=== PATIENT | female | born 1955 | race Caucasian/White ===

== ENCOUNTER 2017-09-26 14:07 | Inpatient (IN) | payer OTHER ==
[2017-09-26] MEDS: morphine 4 MG/ML VIAL IV (17:08)
[2017-09-26] MEDS: SOD CHLORIDE 0.9% 1,000 ML IV ×2 (17:08→18:39)
[2017-09-26] MEDS: ONDANSETRON 4 MG INJ IV ×2 (17:08→18:39)
[2017-09-26 17:09] LABS: ADD MAN DIFF? NO
[2017-09-26 17:14] LABS: BASOPHILS % 0.2 % (0.0-2.0); EOSINOPHILS # 0.1 10^3/ul (0.0-0.5); EOSINOPHILS % 1.6 % (0.0-7.0); HEMOGLOBIN 13.3 g/dl (12.0-16.0); LYMPHOCYTES # 1.6 10^3/ul (0.8-2.9); LYMPHOCYTES % 17.6 % (15.0-51.0); MEAN CORPUSCULAR HEMOGLOBIN 31.9 pg (29.0-33.0); MEAN CORPUSCULAR VOLUME 91.1 fl (82.0-101.0); MEAN PLATELET VOLUME 9.9 fl (7.4-10.4); MONOCYTE # 0.8 10^3/ul (0.3-0.9); NEUTROPHIL # 6.4 10^3/ul (1.6-7.5); NEUTROPHILS % 71.4 % (39.0-77.0); PLATELET COUNT 287 10^3/UL (140-415); RED BLOOD COUNT 4.17 10^6/ul (4.20-5.40); RED CELL DISTRIBUTION WIDTH 11.9 % (11.5-14.5)
[2017-09-26 17:30] LABS: INR 0.96; PROTIME 12.9 Sec (11.9-14.9)
[2017-09-26 17:31] LABS: PARTIAL THROMBOPLASTIN TIME 31.8 Sec (25.0-35.0)
[2017-09-26 17:33] LABS: ALANINE AMINOTRANSFERASE 20 IU/L (13-69); ALBUMIN 4.3 g/dl (3.3-4.9); ALKALINE PHOSPHATASE 106 IU/L (42-121); AMYLASE 73 U/L (11-123); ANION GAP 19 (8-16); ASPARTATE AMINO TRANSFERASE 21 IU/L (15-46); BILIRUBIN,INDIRECT 0.4 mg/dl (0-1.1); BILIRUBIN,TOTAL 0.4 mg/dl (0.2-1.3); BLOOD UREA NITROGEN 20 mg/dl (7-20); CALCIUM 9.6 mg/dl (8.4-10.2); CARBON DIOXIDE 26 mmol/L (21-31); CHLORIDE 99 mmol/L (97-110); CREATININE 1.63 mg/dl (0.44-1.00); GLUCOSE 104 mg/dl (70-220); LIPASE 49 U/L (23-300); POTASSIUM 4.3 mmol/L (3.5-5.1); SODIUM 140 mmol/L (135-144); TOTAL PROTEIN 8.6 g/dl (6.1-8.1)
[2017-09-26 17:38] LABS: ADD UMIC YES; UR ASCORBIC ACID NEGATIVE (NEGATIVE); UR BACTERIA FEW /HPF (NONE SEEN); UR BILIRUBIN (Dip) NEGATIVE (NEGATIVE); UR BLOOD (Dip) NEGATIVE (NEGATIVE); UR CLARITY CLOUDY (CLEAR); UR COLOR AMBER (YELLOW); UR GLUCOSE (Dip) NEGATIVE (NEGATIVE); UR HYALINE CAST FEW /HPF (NONE SEEN); UR KETONES (Dip) NEGATIVE (NEGATIVE); UR LEUKOCYTE ESTERASE (Dip) TRACE Leu/ul (NEGATIVE); UR MUCUS MODERATE /HPF (NONE SEEN); UR NITRITE (Dip) NEGATIVE (NEGATIVE); UR RBC 2 /HPF (0-5); UR SPECIFIC GRAVITY (Dip) 1.018 (1.003-1.030); UR SQUAMOUS EPITHELIAL CELL MANY /HPF (FEW); UR TOTAL PROTEIN (Dip) 1+ mg/dl (NEGATIVE); UR UROBILINOGEN (Dip) 1+ mg/dL (NEGATIVE); UR WBC 12 /HPF (0-5)
[2017-09-26 17:47] LABS: TROPONIN-I < 0.012 ng/ml (0.00-0.12)
[2017-09-26] MEDS: IODIXANOL LOCM 100 ML BTL (18:18)
[2017-09-26] MEDS: SOD CHLORIDE 0.9% 100 ML (18:18)
[2017-09-26] MEDS: HYDROmorphONE 0.5 MG/0.5 ML SYG IV (18:39)
[2017-09-26] MEDS: PIPER-TAZO 3.375 GM IV (PMX) 100 ML IVPB (19:19)
[2017-09-26] MEDS ORDERED: ONDANSETRON 4 MG INJ IV (20:30)
[2017-09-26] MEDS ORDERED: HYDROmorphONE 0.5 MG/0.5 ML SYG IV (21:00)
[2017-09-27] MEDS ORDERED: PIPER-TAZO 3.375 GM IV (PMX) 100 ML IVPB
[2017-09-27] MEDS: DEXTROSE 5%-0.45% NACL 1,000 ML IV ×3 (01:57→18:44)
[2017-09-27] MEDS: PIPER-TAZO 3.375 GM IV (PMX) 100 ML IVPB ×4 (01:58→18:43)
[2017-09-27] MEDS: HYDROmorphONE 0.5 MG/0.5 ML SYG IV ×5 (02:45→23:12)
[2017-09-27 06:40] LABS: ADD MAN DIFF? NO
[2017-09-27 06:46] LABS: BASOPHILS % 0.4 % (0.0-2.0); EOSINOPHILS # 0.4 10^3/ul (0.0-0.5); EOSINOPHILS % 4.8 % (0.0-7.0); HEMATOCRIT 30.1 % (37.0-47.0); HEMOGLOBIN 10.2 g/dl (12.0-16.0); LYMPHOCYTES # 2.1 10^3/ul (0.8-2.9); LYMPHOCYTES % 28.9 % (15.0-51.0); MEAN CORPUSCULAR HEMOGLOBIN 31.6 pg (29.0-33.0); MEAN CORPUSCULAR HGB CONC 33.9 g/dl (32.0-37.0); MEAN CORPUSCULAR VOLUME 93.2 fl (82.0-101.0); MEAN PLATELET VOLUME 10.2 fl (7.4-10.4); MONOCYTE # 0.7 10^3/ul (0.3-0.9); MONOCYTES % 9.4 % (0.0-11.0); NEUTROPHIL # 4.1 10^3/ul (1.6-7.5); NEUTROPHILS % 56.4 % (39.0-77.0); PLATELET COUNT 232 10^3/UL (140-415); RED BLOOD COUNT 3.23 10^6/ul (4.20-5.40); RED CELL DISTRIBUTION WIDTH 11.8 % (11.5-14.5)
[2017-09-27 06:46] LABS: WHITE BLOOD COUNT 7.3 10^3/ul (4.8-10.8)
[2017-09-27] MEDS: PANTOPRAZOLE 40 MG INJ IV (06:54)
[2017-09-27 07:07] LABS: ANION GAP 12 (8-16); BLOOD UREA NITROGEN 18 mg/dl (7-20); CALCIUM 8.5 mg/dl (8.4-10.2); CARBON DIOXIDE 27 mmol/L (21-31); CHLORIDE 106 mmol/L (97-110); CREATININE 1.27 mg/dl (0.44-1.00); GLUCOSE 91 mg/dl (70-220); SODIUM 140 mmol/L (135-144)
[2017-09-27] MEDS ORDERED: LORAZEPAM 2 MG INJ IV (16:30)
[2017-09-28] MEDS: PIPER-TAZO 3.375 GM IV (PMX) 100 ML IVPB ×3 (00:13→12:39)
[2017-09-28] MEDS: DEXTROSE 5%-0.45% NACL 1,000 ML IV ×2 (05:06→18:12)
[2017-09-28] MEDS: HYDROmorphONE 0.5 MG/0.5 ML SYG IV ×3 (05:18→18:11)
[2017-09-28] MEDS: PANTOPRAZOLE 40 MG INJ IV (05:18)
[2017-09-28 06:17] LABS: ADD MAN DIFF? NO
[2017-09-28 06:20] LABS: BASOPHILS % 0.5 % (0.0-2.0); EOSINOPHILS # 0.4 10^3/ul (0.0-0.5); EOSINOPHILS % 6.1 % (0.0-7.0); HEMATOCRIT 28.7 % (37.0-47.0); HEMOGLOBIN 9.9 g/dl (12.0-16.0); LYMPHOCYTES # 1.7 10^3/ul (0.8-2.9); LYMPHOCYTES % 28.7 % (15.0-51.0); MEAN CORPUSCULAR HEMOGLOBIN 31.6 pg (29.0-33.0); MEAN CORPUSCULAR HGB CONC 34.5 g/dl (32.0-37.0); MEAN CORPUSCULAR VOLUME 91.7 fl (82.0-101.0); MEAN PLATELET VOLUME 10.5 fl (7.4-10.4); MONOCYTE # 0.6 10^3/ul (0.3-0.9); MONOCYTES % 9.6 % (0.0-11.0); NEUTROPHIL # 3.3 10^3/ul (1.6-7.5); NEUTROPHILS % 54.9 % (39.0-77.0); PLATELET COUNT 224 10^3/UL (140-415); RED BLOOD COUNT 3.13 10^6/ul (4.20-5.40); RED CELL DISTRIBUTION WIDTH 11.9 % (11.5-14.5)
[2017-09-28 06:20] LABS: WHITE BLOOD COUNT 5.9 10^3/ul (4.8-10.8)
[2017-09-28 06:49] LABS: ALANINE AMINOTRANSFERASE 20 IU/L (13-69); ALBUMIN 3.1 g/dl (3.3-4.9); ALBUMIN/GLOBULIN RATIO 0.96; ALKALINE PHOSPHATASE 74 IU/L (42-121); ANION GAP 14 (8-16); ASPARTATE AMINO TRANSFERASE 18 IU/L (15-46); BILIRUBIN,INDIRECT 0.2 mg/dl (0-1.1); BILIRUBIN,TOTAL 0.2 mg/dl (0.2-1.3); BLOOD UREA NITROGEN 13 mg/dl (7-20); CALCIUM 8.5 mg/dl (8.4-10.2); CARBON DIOXIDE 25 mmol/L (21-31); CHLORIDE 104 mmol/L (97-110); CREATININE 1.21 mg/dl (0.44-1.00); GLUCOSE 89 mg/dl (70-220); SODIUM 139 mmol/L (135-144); TOTAL PROTEIN 6.3 g/dl (6.1-8.1)
[2017-09-28 07:00] LABS: PHOSPHORUS 4.4 mg/dl (2.5-4.9)
[2017-09-28 07:00] LABS: MAGNESIUM 1.7 mg/dl (1.7-2.5)
[2017-09-28] MEDS: LEVOFLOXACIN 500MG/D5W (PMX) 100 ML IVPB (20:08)
[2017-09-29] MEDS: HYDROmorphONE 0.5 MG/0.5 ML SYG IV ×4 (01:58→19:36)
[2017-09-29] MEDS: PANTOPRAZOLE 40 MG INJ IV (05:28)
[2017-09-29] MEDS: DEXTROSE 5%-0.45% NACL 1,000 ML IV (08:54)
[2017-09-29] MEDS: DIPHENHYDRAMINE 50 MG INJ IV (20:21)
[2017-09-30] MEDS: HYDROmorphONE 0.5 MG/0.5 ML SYG IV ×3 (00:10→20:23)
[2017-09-30] MEDS: DEXTROSE 5%-0.45% NACL 1,000 ML IV ×3 (02:26→18:00)
[2017-09-30] MEDS: PANTOPRAZOLE 40 MG INJ IV (05:17)
[2017-09-30 07:09] LABS: ALANINE AMINOTRANSFERASE 24 IU/L (13-69); ALBUMIN 3.4 g/dl (3.3-4.9); ALBUMIN/GLOBULIN RATIO 1.09; ALKALINE PHOSPHATASE 71 IU/L (42-121); ANION GAP 11 (8-16); ASPARTATE AMINO TRANSFERASE 19 IU/L (15-46); BLOOD UREA NITROGEN 5 mg/dl (7-20); CALCIUM 8.9 mg/dl (8.4-10.2); CARBON DIOXIDE 29 mmol/L (21-31); CHLORIDE 104 mmol/L (97-110); CREATININE 0.94 mg/dl (0.44-1.00); GLUCOSE 94 mg/dl (70-220); POTASSIUM 4.4 mmol/L (3.5-5.1); SODIUM 140 mmol/L (135-144); TOTAL PROTEIN 6.5 g/dl (6.1-8.1)
[2017-09-30] MEDS: DIPHENHYDRAMINE 50 MG INJ IV (11:32)
[2017-09-30] MEDS ORDERED: IOHEXOL 300MG/ML 30 ML BTL (15:01)
[2017-09-30] MEDS ORDERED: CEFAZOLIN 1 GM INJ (15:05)
[2017-09-30] MEDS ORDERED: PROPOFOL 20 ML (15:05)
[2017-09-30] MEDS ORDERED: FENTAnyl 50 MCG/ML VIAL (15:05)
[2017-09-30] MEDS ORDERED: MIDAZOLAM 1 MG/ML 2 ML INJ (15:05)
[2017-09-30] MEDS ORDERED: ROCURONIUM 50 MG INJ (15:05)
[2017-09-30] MEDS: INDOMETHACIN 50 MG SUPP PR ×2 (15:30)
[2017-09-30] MEDS: INDOMETHACIN PO (15:35)
[2017-09-30] MEDS ORDERED: DEXAMETHASONE 4 MG/ML 1 ML INJ (15:36)
[2017-09-30] MEDS ORDERED: ONDANSETRON 4 MG INJ (15:36)
[2017-09-30] MEDS ORDERED: METOCLOPRAMIDE 10 MG INJ (15:36)
[2017-09-30] MEDS ORDERED: DIPHENHYDRAMINE 50 MG INJ (15:36)
[2017-09-30] MEDS ORDERED: GLUCAGON 1 MG INJ (15:39)
[2017-09-30] MEDS ORDERED: SUGAMMADEX SODIUM 200 MG/2 ML VIAL IV (16:44)
[2017-09-30] MEDS ORDERED: hydrALAzine 20 MG INJ IV (17:00)
[2017-09-30] MEDS ORDERED: HYDROmorphONE (0.2 MG/ML) 10ML SYG IV ×3 (17:00)
[2017-09-30] MEDS ORDERED: FENTAnyl 50 MCG/ML VIAL IV ×3 (17:00)
[2017-09-30] MEDS ORDERED: ONDANSETRON 4 MG INJ IV (17:00)
[2017-09-30] MEDS ORDERED: MEPERIDINE 25 MG INJ IV (17:00)
[2017-09-30] MEDS ORDERED: LABETALOL HCL 20MG INJ IV (17:00)
[2017-09-30] MEDS ORDERED: EPHEDrine SULFATE 50 MG/5 ML SYG IV (17:00)
[2017-09-30] MEDS ORDERED: DIPHENHYDRAMINE 50 MG INJ IV (17:00)
[2017-09-30] MEDS ORDERED: METOCLOPRAMIDE 10 MG INJ IV (17:00)
[2017-09-30] MEDS: LEVOFLOXACIN 500MG/D5W (PMX) 100 ML IVPB (20:23)
[2017-10-01] MEDS: HYDROmorphONE 0.5 MG/0.5 ML SYG IV ×3 (01:43→20:29)
[2017-10-01] MEDS: PANTOPRAZOLE 40 MG INJ IV (05:50)
[2017-10-01 06:29] LABS: ADD MAN DIFF? NO
[2017-10-01 06:43] LABS: ABNORMAL IP MESSAGE 1; HEMATOCRIT 29.9 % (37.0-47.0); HEMOGLOBIN 10.3 g/dl (12.0-16.0); LYMPHOCYTES # 0.4 10^3/ul (0.8-2.9); LYMPHOCYTES % 11.2 % (15.0-51.0); MEAN CORPUSCULAR HEMOGLOBIN 30.7 pg (29.0-33.0); MEAN CORPUSCULAR HGB CONC 34.4 g/dl (32.0-37.0); MEAN CORPUSCULAR VOLUME 89.3 fl (82.0-101.0); MEAN PLATELET VOLUME 10.4 fl (7.4-10.4); MONOCYTE # 0.2 10^3/ul (0.3-0.9); MONOCYTES % 4.9 % (0.0-11.0); NEUTROPHIL # 3.2 10^3/ul (1.6-7.5); NEUTROPHILS % 83.6 % (39.0-77.0); PLATELET COUNT 226 10^3/UL (140-415); RED BLOOD COUNT 3.35 10^6/ul (4.20-5.40); RED CELL DISTRIBUTION WIDTH 11.6 % (11.5-14.5)
[2017-10-01 06:43] LABS: WHITE BLOOD COUNT 3.8 10^3/ul (4.8-10.8)
[2017-10-01 06:51] LABS: POSITIVE DIFF @See below
[2017-10-01 07:00] LABS: ALANINE AMINOTRANSFERASE 67 IU/L (13-69); ALBUMIN 3.6 g/dl (3.3-4.9); ALBUMIN/GLOBULIN RATIO 1.12; ALKALINE PHOSPHATASE 117 IU/L (42-121); ANION GAP 13 (8-16); ASPARTATE AMINO TRANSFERASE 80 IU/L (15-46); BLOOD UREA NITROGEN 7 mg/dl (7-20); CARBON DIOXIDE 26 mmol/L (21-31); CHLORIDE 104 mmol/L (97-110); CREATININE 0.87 mg/dl (0.44-1.00); GLUCOSE 175 mg/dl (70-220); MAGNESIUM 1.5 mg/dl (1.7-2.5); SODIUM 139 mmol/L (135-144); TOTAL PROTEIN 6.8 g/dl (6.1-8.1)
[2017-10-01 07:00] LABS: PHOSPHORUS 3.1 mg/dl (2.5-4.9)
[2017-10-01] MEDS: DEXTROSE 5%-0.45% NACL 1,000 ML IV (11:09)
[2017-10-01] MEDS: LISINOPRIL 20 MG TAB PO ×2 (17:00→20:29)
[2017-10-01] MEDS: VITAMIN E 200 UNITS CAP PO (17:30)
[2017-10-01] MEDS ORDERED: clonAZEPAM 0.5 MG TAB PO (17:30)
[2017-10-01] MEDS ORDERED: LISINOPRIL 20 MG TAB PO (17:30)
[2017-10-01] MEDS: [UNRECOGNIZED DRUG - REMARK] XX (17:47)
[2017-10-01] MEDS: clonAZEPAM 0.5 MG TAB PO (20:25)
[2017-10-02] MEDS: [UNRECOGNIZED DRUG - REMARK] XX (02:00)
[2017-10-02] MEDS: DEXTROSE 5%-0.45% NACL 1,000 ML IV ×2 (05:28→09:12)
[2017-10-02] MEDS: PANTOPRAZOLE 40 MG INJ IV (05:28)
[2017-10-02 08:54] LABS: ADD MAN DIFF? NO
[2017-10-02] MEDS ORDERED: VITAMIN E PO (09:00)
[2017-10-02 09:03] LABS: WHITE BLOOD COUNT 5.1 10^3/ul (4.8-10.8)
[2017-10-02 09:03] LABS: BASOPHILS % 0.4 % (0.0-2.0); EOSINOPHILS # 0.3 10^3/ul (0.0-0.5); EOSINOPHILS % 6.3 % (0.0-7.0); HEMATOCRIT 28.1 % (37.0-47.0); HEMOGLOBIN 9.6 g/dl (12.0-16.0); LYMPHOCYTES % 39.4 % (15.0-51.0); MEAN CORPUSCULAR HEMOGLOBIN 31.6 pg (29.0-33.0); MEAN CORPUSCULAR HGB CONC 34.2 g/dl (32.0-37.0); MEAN CORPUSCULAR VOLUME 92.4 fl (82.0-101.0); MEAN PLATELET VOLUME 10.5 fl (7.4-10.4); MONOCYTE # 0.5 10^3/ul (0.3-0.9); MONOCYTES % 10.4 % (0.0-11.0); NEUTROPHIL # 2.2 10^3/ul (1.6-7.5); NEUTROPHILS % 43.3 % (39.0-77.0); PLATELET COUNT 217 10^3/UL (140-415); RED BLOOD COUNT 3.04 10^6/ul (4.20-5.40); RED CELL DISTRIBUTION WIDTH 11.9 % (11.5-14.5)
[2017-10-02] MEDS: carBAMAZepine (XR) 100 MG TABSR PO (09:14)
[2017-10-02] MEDS: ARIPIPRAZOLE 10 MG TAB PO (09:15)
[2017-10-02] MEDS: LISINOPRIL 20 MG TAB PO (09:16)
[2017-10-02 09:27] LABS: ALANINE AMINOTRANSFERASE 43 IU/L (13-69); ALBUMIN 3.1 g/dl (3.3-4.9); ALKALINE PHOSPHATASE 86 IU/L (42-121); ANION GAP 13 (8-16); ASPARTATE AMINO TRANSFERASE 38 IU/L (15-46); BLOOD UREA NITROGEN 5 mg/dl (7-20); CALCIUM 8.5 mg/dl (8.4-10.2); CARBON DIOXIDE 25 mmol/L (21-31); CHLORIDE 106 mmol/L (97-110); CREATININE 0.98 mg/dl (0.44-1.00); GLUCOSE 90 mg/dl (70-220); POTASSIUM 3.5 mmol/L (3.5-5.1); SODIUM 140 mmol/L (135-144); TOTAL PROTEIN 5.9 g/dl (6.1-8.1)
[2017-10-02] MEDS: HYDROmorphONE 0.5 MG/0.5 ML SYG IV (09:55)
[2017-10-02] MEDS: VITAMIN E 200 UNITS CAP PO (17:00)
== END 2017-10-02 18:05 | disposition home or self-care (01) | DRG 445 ==
LOC: E/R 14:07 → PP2 20:26
PROC: 0FJB8ZZ Inspection of Hepatobiliary Duct, Via Natural or Artificial Opening Endoscopic (ICD-10-PCS; principal; 2017-09-30 15:00)
PROC: CF1C1ZZ Planar Nuclear Medicine Imaging of Hepatobiliary System, All using Technetium 99m (Tc-99m) (ICD-10-PCS; 2017-09-30 15:00)
DX: K80.43 Calculus of bile duct with acute cholecystitis with obstruction (principal); N17.9 Acute kidney failure, unspecified; N39.0 Urinary tract infection, site not specified; R78.81 Bacteremia; Z68.35 Body mass index [BMI] 35.0-35.9, adult; D64.9 Anemia, unspecified; I10 Essential (primary) hypertension; F31.9 Bipolar disorder, unspecified; M81.0 Age-related osteoporosis without current pathological fracture; K83.8 Other specified diseases of biliary tract; K56.41 Fecal impaction
CPT/HCPCS: 71045; 74177; 74181; 76705; 78226; 80048; 80053; 81001; 82150; 83690; 83735; 84100; 84484; 85025; 85610; 85730; 87040; 87086; 93005; 96374; 96375; 96376; 99285-25

== ENCOUNTER 2017-11-25 17:55 | Inpatient (IN) | payer OTHER ==
[2017-11-25 19:13] LABS: ADD MAN DIFF? NO
[2017-11-25] MEDS: morphine 4 MG/ML VIAL IV (19:14)
[2017-11-25] MEDS: ONDANSETRON 4 MG INJ IV (19:14)
[2017-11-25] MEDS: clonAZEPAM 0.5 MG TAB PO (19:14)
[2017-11-25 19:17] LABS: BASOPHILS % 0.5 % (0.0-2.0); EOSINOPHILS # 0.1 10^3/ul (0.0-0.5); EOSINOPHILS % 1.3 % (0.0-7.0); HEMATOCRIT 33.5 % (37.0-47.0); HEMOGLOBIN 11.5 g/dl (12.0-16.0); LYMPHOCYTES # 2.2 10^3/ul (0.8-2.9); LYMPHOCYTES % 36.5 % (15.0-51.0); MEAN CORPUSCULAR HEMOGLOBIN 31.3 pg (29.0-33.0); MEAN CORPUSCULAR HGB CONC 34.3 g/dl (32.0-37.0); MEAN PLATELET VOLUME 9.5 fl (7.4-10.4); MONOCYTE # 0.5 10^3/ul (0.3-0.9); MONOCYTES % 8.5 % (0.0-11.0); NEUTROPHIL # 3.3 10^3/ul (1.6-7.5); PLATELET COUNT 222 10^3/UL (140-415); RED BLOOD COUNT 3.68 10^6/ul (4.20-5.40); RED CELL DISTRIBUTION WIDTH 12.3 % (11.5-14.5)
[2017-11-25 19:17] LABS: WHITE BLOOD COUNT 6.1 10^3/ul (4.8-10.8)
[2017-11-25] MEDS ORDERED: ONDANSETRON 4 MG INJ IV (19:30)
[2017-11-25] MEDS ORDERED: ACETAMINOPHEN 325 MG TAB PO (19:30)
[2017-11-25 19:34] LABS: ALANINE AMINOTRANSFERASE 18 IU/L (13-69); ALBUMIN 4.2 g/dl (3.3-4.9); ALBUMIN/GLOBULIN RATIO 1.23; ALKALINE PHOSPHATASE 86 IU/L (42-121); ANION GAP 13 (8-16); ASPARTATE AMINO TRANSFERASE 28 IU/L (15-46); BILIRUBIN,INDIRECT 0.4 mg/dl (0-1.1); BILIRUBIN,TOTAL 0.4 mg/dl (0.2-1.3); BLOOD UREA NITROGEN 11 mg/dl (7-20); CALCIUM 8.6 mg/dl (8.4-10.2); CARBON DIOXIDE 24 mmol/L (21-31); CHLORIDE 94 mmol/L (97-110); CREATININE 0.89 mg/dl (0.44-1.00); GLUCOSE 91 mg/dl (70-220); LIPASE 49 U/L (23-300); SODIUM 127 mmol/L (135-144); TOTAL PROTEIN 7.6 g/dl (6.1-8.1)
[2017-11-25 19:37] LABS: PROTIME 12.2 Sec (11.9-14.9)
[2017-11-25 19:38] LABS: PARTIAL THROMBOPLASTIN TIME 30.4 Sec (25.0-35.0)
[2017-11-25 19:48] LABS: TROPONIN-I < 0.012 ng/ml (0.000-0.120)
[2017-11-25 23:27] LABS: ADD UMIC NO; UR ASCORBIC ACID NEGATIVE (NEGATIVE); UR BILIRUBIN (Dip) NEGATIVE (NEGATIVE); UR BLOOD (Dip) NEGATIVE (NEGATIVE); UR CLARITY CLEAR (CLEAR); UR COLOR STRAW (YELLOW); UR GLUCOSE (Dip) NEGATIVE (NEGATIVE); UR KETONES (Dip) NEGATIVE (NEGATIVE); UR LEUKOCYTE ESTERASE (Dip) NEGATIVE Leu/ul (NEGATIVE); UR NITRITE (Dip) NEGATIVE (NEGATIVE); UR SPECIFIC GRAVITY (Dip) 1.008 (1.003-1.030); UR TOTAL PROTEIN (Dip) NEGATIVE (NEGATIVE); UR UROBILINOGEN (Dip) NEGATIVE (NEGATIVE)
[2017-11-26] MEDS: DEXTROSE 5%-0.9% NACL 1,000 ML IV ×2 (02:30→22:00)
[2017-11-26] MEDS: PANTOPRAZOLE 40 MG INJ IV (05:07)
[2017-11-26 05:13] LABS: ADD MAN DIFF? NO
[2017-11-26 05:15] LABS: BASOPHILS % 0.8 % (0.0-2.0); EOSINOPHILS # 0.2 10^3/ul (0.0-0.5); EOSINOPHILS % 3.6 % (0.0-7.0); HEMATOCRIT 29.3 % (37.0-47.0); HEMOGLOBIN 9.9 g/dl (12.0-16.0); LYMPHOCYTES # 2.6 10^3/ul (0.8-2.9); LYMPHOCYTES % 49.2 % (15.0-51.0); MEAN CORPUSCULAR HEMOGLOBIN 31.1 pg (29.0-33.0); MEAN CORPUSCULAR HGB CONC 33.8 g/dl (32.0-37.0); MEAN CORPUSCULAR VOLUME 92.1 fl (82.0-101.0); MEAN PLATELET VOLUME 10.1 fl (7.4-10.4); MONOCYTE # 0.5 10^3/ul (0.3-0.9); MONOCYTES % 9.2 % (0.0-11.0); NEUTROPHILS % 36.8 % (39.0-77.0); PLATELET COUNT 188 10^3/UL (140-415); RED BLOOD COUNT 3.18 10^6/ul (4.20-5.40); RED CELL DISTRIBUTION WIDTH 12.4 % (11.5-14.5)
[2017-11-26 05:15] LABS: WHITE BLOOD COUNT 5.3 10^3/ul (4.8-10.8)
[2017-11-26 05:32] LABS: ALANINE AMINOTRANSFERASE 24 IU/L (13-69); ALBUMIN 3.2 g/dl (3.3-4.9); ALKALINE PHOSPHATASE 72 IU/L (42-121); ANION GAP 8 (8-16); ASPARTATE AMINO TRANSFERASE 24 IU/L (15-46); BILIRUBIN,INDIRECT 0.3 mg/dl (0-1.1); BILIRUBIN,TOTAL 0.3 mg/dl (0.2-1.3); BLOOD UREA NITROGEN 10 mg/dl (7-20); CALCIUM 8.1 mg/dl (8.4-10.2); CARBON DIOXIDE 26 mmol/L (21-31); CHLORIDE 98 mmol/L (97-110); GLUCOSE 87 mg/dl (70-220); POTASSIUM 4.2 mmol/L (3.5-5.1); SODIUM 128 mmol/L (135-144); TOTAL PROTEIN 6.1 g/dl (6.1-8.1)
[2017-11-26] MEDS: morphine 2 MG INJ IV ×3 (07:37→18:58)
[2017-11-26] MEDS: CEFTRIAXONE 1 GM/50 ML (PMX) 50 ML IVPB (08:24)
[2017-11-26] MEDS ORDERED: ARIPIPRAZOLE 5 MG TAB PO (11:30)
[2017-11-26] MEDS ORDERED: clonAZEPAM 0.5 MG TAB PO (11:30)
[2017-11-26] MEDS: ARIPIPRAZOLE 10 MG TAB PO (13:02)
[2017-11-26] MEDS: LISINOPRIL 20 MG TAB PO (13:13)
[2017-11-26] MEDS: metroNIDAZOLE 500 MG/NS (PMX) 100 ML IVPB ×2 (15:09→21:45)
[2017-11-26 18:55] LABS: SODIUM,URINE RANDOM 32 mmol/L (30-90)
[2017-11-26 19:44] LABS: OSMOLALITY,URINE 114 mOsm/kg (250-1200)
[2017-11-26] MEDS: clonAZEPAM 0.5 MG TAB PO (20:45)
[2017-11-26] MEDS: carBAMAZepine (XR) 100 MG TABSR PO (21:44)
[2017-11-27] MEDS: DEXTROSE 5%-0.9% NACL 1,000 ML IV ×2 (02:00→18:33)
[2017-11-27] MEDS: morphine 2 MG INJ IV ×4 (03:40→18:34)
[2017-11-27 05:25] LABS: ADD MAN DIFF? NO
[2017-11-27] MEDS: metroNIDAZOLE 500 MG/NS (PMX) 100 ML IVPB ×3 (05:28→22:13)
[2017-11-27] MEDS: PANTOPRAZOLE 40 MG INJ IV (05:28)
[2017-11-27 05:31] LABS: BASOPHILS % 0.8 % (0.0-2.0); EOSINOPHILS # 0.1 10^3/ul (0.0-0.5); EOSINOPHILS % 3.2 % (0.0-7.0); HEMATOCRIT 32.5 % (37.0-47.0); HEMOGLOBIN 10.7 g/dl (12.0-16.0); LYMPHOCYTES # 1.4 10^3/ul (0.8-2.9); LYMPHOCYTES % 37.3 % (15.0-51.0); MEAN CORPUSCULAR HEMOGLOBIN 30.9 pg (29.0-33.0); MEAN CORPUSCULAR HGB CONC 32.9 g/dl (32.0-37.0); MEAN CORPUSCULAR VOLUME 93.9 fl (82.0-101.0); MEAN PLATELET VOLUME 9.8 fl (7.4-10.4); MONOCYTE # 0.4 10^3/ul (0.3-0.9); MONOCYTES % 11.5 % (0.0-11.0); NEUTROPHIL # 1.8 10^3/ul (1.6-7.5); NEUTROPHILS % 47.2 % (39.0-77.0); PLATELET COUNT 186 10^3/UL (140-415); RED BLOOD COUNT 3.46 10^6/ul (4.20-5.40); RED CELL DISTRIBUTION WIDTH 12.7 % (11.5-14.5)
[2017-11-27 05:31] LABS: WHITE BLOOD COUNT 3.8 10^3/ul (4.8-10.8)
[2017-11-27 06:30] LABS: MAGNESIUM 1.9 mg/dl (1.7-2.5)
[2017-11-27 06:30] LABS: PHOSPHORUS 4.9 mg/dl (2.5-4.9)
[2017-11-27 06:33] LABS: ALANINE AMINOTRANSFERASE 24 IU/L (13-69); ALBUMIN 3.3 g/dl (3.3-4.9); ALKALINE PHOSPHATASE 74 IU/L (42-121); ANION GAP 9 (8-16); ASPARTATE AMINO TRANSFERASE 24 IU/L (15-46); BILIRUBIN,INDIRECT 0.1 mg/dl (0-1.1); BILIRUBIN,TOTAL 0.1 mg/dl (0.2-1.3); BLOOD UREA NITROGEN 9 mg/dl (7-20); CALCIUM 8.6 mg/dl (8.4-10.2); CARBON DIOXIDE 28 mmol/L (21-31); CHLORIDE 107 mmol/L (97-110); CREATININE 0.84 mg/dl (0.44-1.00); GLUCOSE 90 mg/dl (70-220); POTASSIUM 4.2 mmol/L (3.5-5.1); SODIUM 140 mmol/L (135-144); TOTAL PROTEIN 6.3 g/dl (6.1-8.1)
[2017-11-27 06:35] LABS: SODIUM,URINE RANDOM 38 mmol/L (30-90)
[2017-11-27] MEDS: CEFTRIAXONE 1 GM/50 ML (PMX) 50 ML IVPB (09:03)
[2017-11-27] MEDS: LISINOPRIL 20 MG TAB PO (09:04)
[2017-11-27] MEDS: ARIPIPRAZOLE 10 MG TAB PO (09:04)
[2017-11-27] MEDS: carBAMAZepine (XR) 100 MG TABSR PO ×2 (09:06→20:47)
[2017-11-27 09:32] LABS: OSMOLALITY,URINE 172 mOsm/kg (250-1200)
[2017-11-27] MEDS: clonAZEPAM 0.5 MG TAB PO (22:11)
[2017-11-28] MEDS: morphine 2 MG INJ IV ×4 (01:07→20:16)
[2017-11-28] MEDS: DEXTROSE 5%-0.9% NACL 1,000 ML IV ×2 (03:38→14:00)
[2017-11-28] MEDS: metroNIDAZOLE 500 MG/NS (PMX) 100 ML IVPB ×3 (05:18→21:38)
[2017-11-28] MEDS: PANTOPRAZOLE 40 MG INJ IV (05:18)
[2017-11-28 05:47] LABS: ADD MAN DIFF? NO
[2017-11-28 05:51] LABS: BASOPHILS % 0.3 % (0.0-2.0); EOSINOPHILS # 0.1 10^3/ul (0.0-0.5); EOSINOPHILS % 2.2 % (0.0-7.0); HEMATOCRIT 32.7 % (37.0-47.0); HEMOGLOBIN 10.6 g/dl (12.0-16.0); LYMPHOCYTES # 1.5 10^3/ul (0.8-2.9); LYMPHOCYTES % 42.7 % (15.0-51.0); MEAN CORPUSCULAR HGB CONC 32.4 g/dl (32.0-37.0); MEAN CORPUSCULAR VOLUME 95.6 fl (82.0-101.0); MEAN PLATELET VOLUME 9.8 fl (7.4-10.4); MONOCYTE # 0.4 10^3/ul (0.3-0.9); MONOCYTES % 12.4 % (0.0-11.0); NEUTROPHIL # 1.5 10^3/ul (1.6-7.5); NEUTROPHILS % 42.4 % (39.0-77.0); PLATELET COUNT 191 10^3/UL (140-415); RED BLOOD COUNT 3.42 10^6/ul (4.20-5.40); RED CELL DISTRIBUTION WIDTH 12.5 % (11.5-14.5)
[2017-11-28 05:51] LABS: WHITE BLOOD COUNT 3.6 10^3/ul (4.8-10.8)
[2017-11-28 06:22] LABS: ALANINE AMINOTRANSFERASE 25 IU/L (13-69); ALBUMIN 3.3 g/dl (3.3-4.9); ALBUMIN/GLOBULIN RATIO 1.17; ALKALINE PHOSPHATASE 70 IU/L (42-121); ANION GAP 8 (8-16); ASPARTATE AMINO TRANSFERASE 23 IU/L (15-46); BILIRUBIN,INDIRECT 0.1 mg/dl (0-1.1); BILIRUBIN,TOTAL 0.1 mg/dl (0.2-1.3); BLOOD UREA NITROGEN 10 mg/dl (7-20); CALCIUM 8.3 mg/dl (8.4-10.2); CARBON DIOXIDE 27 mmol/L (21-31); CHLORIDE 108 mmol/L (97-110); CREATININE 0.75 mg/dl (0.44-1.00); GLUCOSE 89 mg/dl (70-220); POTASSIUM 4.2 mmol/L (3.5-5.1); SODIUM 139 mmol/L (135-144); TOTAL PROTEIN 6.1 g/dl (6.1-8.1)
[2017-11-28 06:26] LABS: MAGNESIUM 1.8 mg/dl (1.7-2.5)
[2017-11-28] MEDS: CEFTRIAXONE 1 GM/50 ML (PMX) 50 ML IVPB (08:36)
[2017-11-28] MEDS: clonAZEPAM 0.5 MG TAB PO ×2 (08:37→21:38)
[2017-11-28] MEDS: carBAMAZepine (XR) 100 MG TABSR PO ×2 (08:38→22:14)
[2017-11-28] MEDS: ARIPIPRAZOLE 10 MG TAB PO (08:39)
[2017-11-28] MEDS: ACETAMINOPHEN 325 MG TAB PO ×2 (08:40→23:25)
[2017-11-28] MEDS: LISINOPRIL 20 MG TAB PO (08:45)
[2017-11-29] MEDS: morphine 2 MG INJ IV ×4 (00:45→19:49)
[2017-11-29] MEDS: DEXTROSE 5%-0.9% NACL 1,000 ML IV (02:49)
[2017-11-29 05:24] LABS: WHITE BLOOD COUNT 3.3 10^3/ul (4.8-10.8)
[2017-11-29 05:24] LABS: ABNORMAL IP MESSAGE 1; HEMATOCRIT 29.9 % (37.0-47.0); HEMOGLOBIN 9.8 g/dl (12.0-16.0); MEAN CORPUSCULAR HEMOGLOBIN 30.8 pg (29.0-33.0); MEAN CORPUSCULAR HGB CONC 32.8 g/dl (32.0-37.0); MEAN PLATELET VOLUME 9.9 fl (7.4-10.4); PLATELET COUNT 184 10^3/UL (140-415); RED BLOOD COUNT 3.18 10^6/ul (4.20-5.40); RED CELL DISTRIBUTION WIDTH 12.6 % (11.5-14.5)
[2017-11-29 05:33] LABS: ADD MAN DIFF? YES; POSITIVE DIFF @See below
[2017-11-29] MEDS: metroNIDAZOLE 500 MG/NS (PMX) 100 ML IVPB ×3 (05:47→21:38)
[2017-11-29] MEDS: PANTOPRAZOLE 40 MG INJ IV (05:47)
[2017-11-29 06:47] LABS: BASOPHILS % (M) 1 % (0-2); EOSINOPHILS % (M) 5 % (0-7); LYMPHOCYTES #M 2.1 10^3/ul (0.8-2.9); LYMPHOCYTES % (M) 66 % (15-51); MONOCYTE #M 0.4 10^3/ul (0.3-0.9); MONOCYTES % (M) 13 % (0-11); OVALOCYTES 1+ (0-0); PLATELET ESTIMATE NORMAL; SEGMENTED NEUTROPHILS (M) % 15 % (39-77); SMUDGE%M 3 % (0-0)
[2017-11-29] MEDS: carBAMAZepine (XR) 100 MG TABSR PO ×2 (09:24→21:39)
[2017-11-29] MEDS: CEFTRIAXONE 1 GM/50 ML (PMX) 50 ML IVPB (09:24)
[2017-11-29] MEDS: ARIPIPRAZOLE 10 MG TAB PO (09:24)
[2017-11-29] MEDS: LISINOPRIL 20 MG TAB PO (09:25)
[2017-11-29] MEDS: clonAZEPAM 0.5 MG TAB PO (09:34)
[2017-11-29] MEDS: AMITRIPTYLINE 25 MG TAB PO (23:13)
[2017-11-30] MEDS: hydrALAzine 20 MG INJ IV ×3 (05:04→19:34)
[2017-11-30] MEDS: DEXTROSE 5%-0.9% NACL 1,000 ML IV (05:12)
[2017-11-30] MEDS: metroNIDAZOLE 500 MG/NS (PMX) 100 ML IVPB ×3 (05:33→22:11)
[2017-11-30] MEDS: PANTOPRAZOLE 40 MG INJ IV (05:33)
[2017-11-30 05:43] LABS: ADD MAN DIFF? NO; BASOPHILS % 0.8 % (0.0-2.0); EOSINOPHILS # 0.2 10^3/ul (0.0-0.5); EOSINOPHILS % 5.7 % (0.0-7.0); HEMATOCRIT 29.9 % (37.0-47.0); HEMOGLOBIN 9.8 g/dl (12.0-16.0); LYMPHOCYTES # 1.8 10^3/ul (0.8-2.9); LYMPHOCYTES % 48.6 % (15.0-51.0); MEAN CORPUSCULAR HEMOGLOBIN 31.1 pg (29.0-33.0); MEAN CORPUSCULAR HGB CONC 32.8 g/dl (32.0-37.0); MEAN CORPUSCULAR VOLUME 94.9 fl (82.0-101.0); MEAN PLATELET VOLUME 9.8 fl (7.4-10.4); MONOCYTE # 0.5 10^3/ul (0.3-0.9); MONOCYTES % 12.4 % (0.0-11.0); NEUTROPHIL # 1.2 10^3/ul (1.6-7.5); NEUTROPHILS % 32.5 % (39.0-77.0); PLATELET COUNT 177 10^3/UL (140-415); RED BLOOD COUNT 3.15 10^6/ul (4.20-5.40); RED CELL DISTRIBUTION WIDTH 12.5 % (11.5-14.5)
[2017-11-30 05:43] LABS: WHITE BLOOD COUNT 3.7 10^3/ul (4.8-10.8)
[2017-11-30] MEDS: morphine 2 MG INJ IV ×2 (05:50→11:57)
[2017-11-30 06:31] LABS: LIPASE 29 U/L (23-300)
[2017-11-30 06:31] LABS: PHOSPHORUS 4.3 mg/dl (2.5-4.9)
[2017-11-30] MEDS: CEFTRIAXONE 1 GM/50 ML (PMX) 50 ML IVPB (08:47)
[2017-11-30] MEDS: ARIPIPRAZOLE 10 MG TAB PO (08:48)
[2017-11-30] MEDS: carBAMAZepine (XR) 100 MG TABSR PO ×2 (08:48→20:01)
[2017-11-30] MEDS: LISINOPRIL 20 MG TAB PO (08:51)
[2017-11-30] MEDS: AMITRIPTYLINE 25 MG TAB PO (20:01)
[2017-11-30] MEDS: clonAZEPAM 0.5 MG TAB PO (20:01)
[2017-12-01] MEDS: DEXTROSE 5%-0.9% NACL 1,000 ML IV (02:18)
[2017-12-01] MEDS: morphine 2 MG INJ IV ×2 (02:19→12:00)
[2017-12-01] MEDS: PANTOPRAZOLE 40 MG INJ IV (06:27)
[2017-12-01] MEDS: metroNIDAZOLE 500 MG/NS (PMX) 100 ML IVPB ×3 (06:27→21:32)
[2017-12-01] MEDS: hydrALAzine 20 MG INJ IV (09:35)
[2017-12-01] MEDS: CEFTRIAXONE 1 GM/50 ML (PMX) 50 ML IVPB (09:36)
[2017-12-01] MEDS: LISINOPRIL 20 MG TAB PO (09:43)
[2017-12-01] MEDS: carBAMAZepine (XR) 100 MG TABSR PO ×2 (10:57→21:32)
[2017-12-01] MEDS: ARIPIPRAZOLE 10 MG TAB PO (10:58)
[2017-12-01] MEDS: clonAZEPAM 0.5 MG TAB PO (11:07)
[2017-12-01] MEDS: DEXTROSE 5%-0.45% NACL 1,000 ML IV ×2 (14:30→23:45)
[2017-12-01] MEDS: AMITRIPTYLINE 25 MG TAB PO (21:32)
[2017-12-02] MEDS: ACETAMINOPHEN 325 MG TAB PO ×3 (00:44→16:46)
[2017-12-02] MEDS: hydrALAzine 20 MG INJ IV ×2 (00:49→11:59)
[2017-12-02] MEDS: morphine 2 MG INJ IV (02:51)
[2017-12-02] MEDS: metroNIDAZOLE 500 MG/NS (PMX) 100 ML IVPB ×5 (05:25→22:36)
[2017-12-02] MEDS: PANTOPRAZOLE 40 MG INJ IV (05:25)
[2017-12-02 06:21] LABS: ALANINE AMINOTRANSFERASE 24 IU/L (13-69); ALBUMIN 3.5 g/dl (3.3-4.9); ALBUMIN/GLOBULIN RATIO 1.12; ALKALINE PHOSPHATASE 74 IU/L (42-121); ANION GAP 12 (8-16); ASPARTATE AMINO TRANSFERASE 27 IU/L (15-46); BILIRUBIN,INDIRECT 0.2 mg/dl (0-1.1); BILIRUBIN,TOTAL 0.2 mg/dl (0.2-1.3); BLOOD UREA NITROGEN 10 mg/dl (7-20); CALCIUM 8.4 mg/dl (8.4-10.2); CARBON DIOXIDE 24 mmol/L (21-31); CHLORIDE 101 mmol/L (97-110); CREATININE 0.74 mg/dl (0.44-1.00); GLUCOSE 90 mg/dl (70-220); SODIUM 133 mmol/L (135-144); TOTAL PROTEIN 6.6 g/dl (6.1-8.1)
[2017-12-02 06:22] LABS: MAGNESIUM 1.5 mg/dl (1.7-2.5)
[2017-12-02 06:22] LABS: PHOSPHORUS 3.3 mg/dl (2.5-4.9)
[2017-12-02] MEDS ORDERED: GLUCAGON 1 MG INJ (07:00)
[2017-12-02] MEDS: carBAMAZepine (XR) 100 MG TABSR PO ×2 (09:33→20:35)
[2017-12-02] MEDS: LISINOPRIL 20 MG TAB PO (09:33)
[2017-12-02] MEDS: ARIPIPRAZOLE 10 MG TAB PO (09:34)
[2017-12-02] MEDS: CEFTRIAXONE 1 GM/50 ML (PMX) 50 ML IVPB (09:35)
[2017-12-02] MEDS ORDERED: IOHEXOL 300MG/ML 30 ML BTL (13:19)
[2017-12-02] MEDS: INDOMETHACIN 50 MG SUPP PR (13:30)
[2017-12-02] MEDS ORDERED: MIDAZOLAM 1 MG/ML 2 ML INJ (13:43)
[2017-12-02] MEDS ORDERED: PROPOFOL 20 ML (13:43)
[2017-12-02] MEDS ORDERED: LIDOCAINE 2% (SDV) 5 ML INJ (13:43)
[2017-12-02] MEDS ORDERED: SUCCINYLCHOLINE CHLORIDE 100 MG/5 ML SYG IV (13:43)
[2017-12-02] MEDS ORDERED: FENTAnyl 50 MCG/ML VIAL (13:43)
[2017-12-02] MEDS ORDERED: KETOROLAC 30 MG INJ (13:56)
[2017-12-02] MEDS ORDERED: DEXAMETHASONE 4 MG/ML 1 ML INJ (13:56)
[2017-12-02] MEDS ORDERED: ONDANSETRON 4 MG INJ (13:56)
[2017-12-02] MEDS ORDERED: PHENYLephrine (100 MCG/ML) 5ML SYG (14:08)
[2017-12-02] MEDS: MAGNESIUM OXIDE 400 MG TAB PO ×2 (16:00→20:34)
[2017-12-02] MEDS: AMLODIPINE 10 MG TAB PO (16:02)
[2017-12-02 17:08] LABS: CARCINOEMBRYONIC ANTIGEN 0.6 ng/ml (0.0-5.0)
[2017-12-02 17:12] LABS: CANCER ANTIGEN 19-9 3.5 U/ml (0.0-37.0)
[2017-12-02] MEDS: morphine LIQ (10 MG/5 ML) CUP PO (18:17)
[2017-12-02] MEDS: AMITRIPTYLINE 25 MG TAB PO (20:34)
[2017-12-03 05:00] LABS: ADD MAN DIFF? NO
[2017-12-03 05:04] LABS: HEMATOCRIT 29.6 % (37.0-47.0); HEMOGLOBIN 10.1 g/dl (12.0-16.0); LYMPHOCYTES # 0.8 10^3/ul (0.8-2.9); LYMPHOCYTES % 18.8 % (15.0-51.0); MEAN CORPUSCULAR HEMOGLOBIN 31.6 pg (29.0-33.0); MEAN CORPUSCULAR HGB CONC 34.1 g/dl (32.0-37.0); MEAN CORPUSCULAR VOLUME 92.5 fl (82.0-101.0); MEAN PLATELET VOLUME 9.9 fl (7.4-10.4); MONOCYTE # 0.3 10^3/ul (0.3-0.9); MONOCYTES % 7.5 % (0.0-11.0); NEUTROPHIL # 3.3 10^3/ul (1.6-7.5); NEUTROPHILS % 73.5 % (39.0-77.0); PLATELET COUNT 182 10^3/UL (140-415); RED CELL DISTRIBUTION WIDTH 12.8 % (11.5-14.5)
[2017-12-03 05:04] LABS: WHITE BLOOD COUNT 4.4 10^3/ul (4.8-10.8)
[2017-12-03 05:32] LABS: LIPASE 23 U/L (23-300)
[2017-12-03] MEDS: PANTOPRAZOLE 40 MG INJ IV (06:10)
[2017-12-03] MEDS: metroNIDAZOLE 500 MG/NS (PMX) 100 ML IVPB ×3 (06:10→22:00)
[2017-12-03] MEDS: LISINOPRIL 20 MG TAB PO (09:08)
[2017-12-03] MEDS: AMLODIPINE 10 MG TAB PO (09:08)
[2017-12-03] MEDS: MAGNESIUM OXIDE 400 MG TAB PO ×2 (09:09→20:57)
[2017-12-03] MEDS: ARIPIPRAZOLE 10 MG TAB PO (09:09)
[2017-12-03] MEDS: carBAMAZepine (XR) 100 MG TABSR PO ×2 (09:10→20:57)
[2017-12-03] MEDS: CEFTRIAXONE 1 GM/50 ML (PMX) 50 ML IVPB (09:10)
[2017-12-03] MEDS: morphine LIQ (10 MG/5 ML) CUP PO (11:52)
[2017-12-03] MEDS: DEXTROSE 5%-0.45% NACL 1,000 ML IV (14:16)
[2017-12-03] MEDS: AMITRIPTYLINE 25 MG TAB PO (20:57)
[2017-12-03] MEDS: ACETAMINOPHEN 325 MG TAB PO (20:57)
[2017-12-03] MEDS: clonAZEPAM 0.5 MG TAB PO (23:12)
[2017-12-04] MEDS: ACETAMINOPHEN 325 MG TAB PO ×3 (02:47→16:38)
[2017-12-04] MEDS: hydrALAzine 20 MG INJ IV (02:51)
[2017-12-04] MEDS: metroNIDAZOLE 500 MG/NS (PMX) 100 ML IVPB ×3 (05:23→21:56)
[2017-12-04] MEDS: PANTOPRAZOLE 40 MG INJ IV (05:23)
[2017-12-04] MEDS: morphine LIQ (10 MG/5 ML) CUP PO ×5 (05:33→23:03)
[2017-12-04] MEDS: AMLODIPINE 10 MG TAB PO (09:07)
[2017-12-04] MEDS: LISINOPRIL 20 MG TAB PO (09:07)
[2017-12-04] MEDS: carBAMAZepine (XR) 100 MG TABSR PO ×2 (09:08→21:56)
[2017-12-04] MEDS: CEFTRIAXONE 1 GM/50 ML (PMX) 50 ML IVPB (09:09)
[2017-12-04] MEDS: ARIPIPRAZOLE 10 MG TAB PO (09:09)
[2017-12-04 13:08] LABS: ADD UMIC YES; UR ASCORBIC ACID NEGATIVE (NEGATIVE); UR BILIRUBIN (Dip) NEGATIVE (NEGATIVE); UR BLOOD (Dip) NEGATIVE (NEGATIVE); UR CLARITY CLEAR (CLEAR); UR COLOR STRAW (YELLOW); UR GLUCOSE (Dip) NEGATIVE (NEGATIVE); UR KETONES (Dip) NEGATIVE (NEGATIVE); UR LEUKOCYTE ESTERASE (Dip) 2+ Leu/ul (NEGATIVE); UR NITRITE (Dip) NEGATIVE (NEGATIVE); UR RBC 1 /HPF (0-5); UR SPECIFIC GRAVITY (Dip) 1.009 (1.003-1.030); UR TOTAL PROTEIN (Dip) NEGATIVE (NEGATIVE); UR UROBILINOGEN (Dip) NEGATIVE (NEGATIVE); UR WBC 5 /HPF (0-5)
[2017-12-04] MEDS: clonAZEPAM 0.5 MG TAB PO (13:52)
[2017-12-04 14:29] LABS: ADD MAN DIFF? NO
[2017-12-04 14:30] LABS: WHITE BLOOD COUNT 5.2 10^3/ul (4.8-10.8)
[2017-12-04 14:30] LABS: BASOPHILS % 0.2 % (0.0-2.0); EOSINOPHILS # 0.1 10^3/ul (0.0-0.5); EOSINOPHILS % 1.7 % (0.0-7.0); HEMATOCRIT 30.4 % (37.0-47.0); HEMOGLOBIN 10.6 g/dl (12.0-16.0); LYMPHOCYTES # 1.6 10^3/ul (0.8-2.9); LYMPHOCYTES % 30.6 % (15.0-51.0); MEAN CORPUSCULAR HEMOGLOBIN 32.6 pg (29.0-33.0); MEAN CORPUSCULAR HGB CONC 34.9 g/dl (32.0-37.0); MEAN CORPUSCULAR VOLUME 93.5 fl (82.0-101.0); MEAN PLATELET VOLUME 9.8 fl (7.4-10.4); MONOCYTE # 0.4 10^3/ul (0.3-0.9); MONOCYTES % 8.5 % (0.0-11.0); NEUTROPHIL # 3.1 10^3/ul (1.6-7.5); NEUTROPHILS % 58.8 % (39.0-77.0); PLATELET COUNT 171 10^3/UL (140-415); RED BLOOD COUNT 3.25 10^6/ul (4.20-5.40); RED CELL DISTRIBUTION WIDTH 12.8 % (11.5-14.5)
[2017-12-04] MEDS: DEXTROSE 5%-0.45% NACL 1,000 ML IV (14:30)
[2017-12-04 14:47] LABS: ALANINE AMINOTRANSFERASE 36 IU/L (13-69); ALBUMIN 3.7 g/dl (3.3-4.9); ALBUMIN/GLOBULIN RATIO 1.19; ALKALINE PHOSPHATASE 65 IU/L (42-121); ANION GAP 11 (8-16); ASPARTATE AMINO TRANSFERASE 47 IU/L (15-46); BILIRUBIN,INDIRECT 0.1 mg/dl (0-1.1); BILIRUBIN,TOTAL 0.1 mg/dl (0.2-1.3); BLOOD UREA NITROGEN 15 mg/dl (7-20); CALCIUM 8.5 mg/dl (8.4-10.2); CARBON DIOXIDE 26 mmol/L (21-31); CHLORIDE 96 mmol/L (97-110); CREATININE 0.77 mg/dl (0.44-1.00); GLUCOSE 85 mg/dl (70-220); POTASSIUM 4.3 mmol/L (3.5-5.1); SODIUM 129 mmol/L (135-144); TOTAL PROTEIN 6.8 g/dl (6.1-8.1)
[2017-12-04] MEDS: PEG/ELECTROLYTES 4L BTL PO (16:05)
[2017-12-04] MEDS: DEXTROSE 5%-0.9% NACL 1,000 ML IV (18:45)
[2017-12-04] MEDS: AMITRIPTYLINE 25 MG TAB PO (21:55)
[2017-12-05] MEDS: hydrALAzine 20 MG INJ IV ×3 (02:06→20:12)
[2017-12-05] MEDS: morphine LIQ (10 MG/5 ML) CUP PO ×2 (03:29→08:41)
[2017-12-05] MEDS: PANTOPRAZOLE 40 MG INJ IV (05:08)
[2017-12-05] MEDS: clonAZEPAM 0.5 MG TAB PO ×2 (05:08→16:45)
[2017-12-05] MEDS: metroNIDAZOLE 500 MG/NS (PMX) 100 ML IVPB ×3 (05:09→22:00)
[2017-12-05] MEDS: ACETAMINOPHEN 325 MG TAB PO (05:09)
[2017-12-05 05:39] LABS: ANION GAP 12 (8-16); BLOOD UREA NITROGEN 9 mg/dl (7-20); CALCIUM 8.5 mg/dl (8.4-10.2); CARBON DIOXIDE 27 mmol/L (21-31); CHLORIDE 94 mmol/L (97-110); CREATININE 0.72 mg/dl (0.44-1.00); GLUCOSE 91 mg/dl (70-220); POTASSIUM 3.9 mmol/L (3.5-5.1); SODIUM 129 mmol/L (135-144)
[2017-12-05] MEDS: CEFTRIAXONE 1 GM/50 ML (PMX) 50 ML IVPB (08:38)
[2017-12-05] MEDS: LISINOPRIL 20 MG TAB PO (08:39)
[2017-12-05] MEDS: carBAMAZepine (XR) 100 MG TABSR PO ×2 (08:40→21:00)
[2017-12-05] MEDS: AMLODIPINE 10 MG TAB PO (08:40)
[2017-12-05] MEDS: ARIPIPRAZOLE 10 MG TAB PO (08:40)
[2017-12-05] MEDS: morphine 2 MG INJ IV ×3 (13:06→21:06)
[2017-12-05] MEDS: PIPER-TAZO 3.375 GM IV (PMX) 100 ML IVPB (13:06)
[2017-12-05] MEDS ORDERED: morphine LIQ (10 MG/5 ML) CUP PO (14:00)
[2017-12-05] MEDS: DEXTROSE 5%-0.9% NACL 1,000 ML IV (14:46)
[2017-12-05] MEDS: PEG/ELECTROLYTES 4L BTL PO (19:50)
[2017-12-05] MEDS: ONDANSETRON 4 MG INJ IV ×2 (19:55→23:54)
[2017-12-05] MEDS: AMITRIPTYLINE 25 MG TAB PO (21:00)
[2017-12-05] MEDS: D5-NS + KCL 20 MEQ 1,000 ML IV (21:06)
[2017-12-06] MEDS: morphine 2 MG INJ IV ×4 (01:04→21:40)
[2017-12-06] MEDS: hydrALAzine 20 MG INJ IV ×2 (03:50→20:30)
[2017-12-06] MEDS: PANTOPRAZOLE 40 MG INJ IV (05:37)
[2017-12-06] MEDS: metroNIDAZOLE 500 MG/NS (PMX) 100 ML IVPB ×3 (05:38→21:40)
[2017-12-06] MEDS ORDERED: ACETAMINOPHEN 1000 MG/100 ML IVPB (07:00)
[2017-12-06] MEDS: AMLODIPINE 10 MG TAB PO ×2 (09:00→09:12)
[2017-12-06] MEDS: ARIPIPRAZOLE 10 MG TAB PO (09:00)
[2017-12-06] MEDS: LISINOPRIL 20 MG TAB PO (09:00)
[2017-12-06] MEDS: carBAMAZepine (XR) 100 MG TABSR PO ×2 (09:00→21:00)
[2017-12-06] MEDS: CEFTRIAXONE 1 GM/50 ML (PMX) 50 ML IVPB (09:11)
[2017-12-06] MEDS: D5-NS + KCL 20 MEQ 1,000 ML IV ×2 (09:51→21:00)
[2017-12-06] MEDS ORDERED: MIDAZOLAM 1 MG/ML 2 ML INJ (14:16)
[2017-12-06] MEDS ORDERED: LIDOCAINE 2% (SDV) 5 ML INJ (14:16)
[2017-12-06] MEDS ORDERED: PROPOFOL 20 ML (14:16)
[2017-12-06] MEDS ORDERED: DEXAMETHASONE 4 MG/ML 1 ML INJ (14:16)
[2017-12-06] MEDS ORDERED: ROCURONIUM 50 MG INJ ×2 (14:16→16:27)
[2017-12-06] MEDS ORDERED: ONDANSETRON 4 MG INJ (14:16)
[2017-12-06] MEDS ORDERED: FENTAnyl 50 MCG/ML VIAL (14:16)
[2017-12-06] MEDS ORDERED: FENTAnyl 50 MCG/ML VIAL IV ×2 (16:30)
[2017-12-06] MEDS ORDERED: DIPHENHYDRAMINE 50 MG INJ IV (16:30)
[2017-12-06] MEDS ORDERED: EPHEDrine SULFATE 50 MG/5 ML SYG IV (16:30)
[2017-12-06] MEDS ORDERED: METOCLOPRAMIDE 10 MG INJ IV (16:30)
[2017-12-06] MEDS ORDERED: ALBUTEROL 0.083% (NEB) 2.5 MG/3 ML AMP HHN (16:30)
[2017-12-06] MEDS ORDERED: HYDROmorphONE 1 MG/5 ML IV SYRINGE IV (16:30)
[2017-12-06] MEDS ORDERED: MEPERIDINE 25 MG INJ IV (16:30)
[2017-12-06] MEDS ORDERED: hydrALAzine 20 MG INJ IV (16:30)
[2017-12-06] MEDS ORDERED: MIDAZOLAM 1 MG/ML 2 ML INJ IV (16:30)
[2017-12-06] MEDS ORDERED: OXYCODONE/ACETAMINOPHEN (5/325) TAB PO ×2 (16:30)
[2017-12-06] MEDS ORDERED: morphine 10 MG INJ (17:29)
[2017-12-06] MEDS ORDERED: SUGAMMADEX SODIUM 200 MG/2 ML VIAL IV (17:58)
[2017-12-06] MEDS: HYDROmorphONE 1 MG/5 ML IV SYRINGE IV ×3 (18:25→18:49)
[2017-12-06] MEDS: LABETALOL HCL 20MG INJ IV (18:31)
[2017-12-06] MEDS: ONDANSETRON 4 MG INJ IV (18:34)
[2017-12-06] MEDS: FENTAnyl 50 MCG/ML VIAL IV (18:53)
[2017-12-06] MEDS: D5W-0.45 NACL + KCL 20 MEQ 1,000 ML IV (20:30)
[2017-12-06] MEDS: AMITRIPTYLINE 25 MG TAB PO (21:00)
[2017-12-06] MEDS: ACETAMINOPHEN 1000MG/100ML IV 100 ML IVPB (23:21)
[2017-12-07] MEDS: morphine 2 MG INJ IV ×4 (00:50→20:50)
[2017-12-07] MEDS: ONDANSETRON 4 MG INJ IV ×3 (00:51→20:50)
[2017-12-07] MEDS: D5W-0.45 NACL + KCL 20 MEQ 1,000 ML IV ×4 (02:20→19:40)
[2017-12-07] MEDS: metroNIDAZOLE 500 MG/NS (PMX) 100 ML IVPB ×3 (05:19→21:30)
[2017-12-07] MEDS: PANTOPRAZOLE 40 MG INJ IV (05:20)
[2017-12-07] MEDS: CEFTRIAXONE 1 GM/50 ML (PMX) 50 ML IVPB (08:06)
[2017-12-07] MEDS: carBAMAZepine (XR) 100 MG TABSR PO ×2 (08:06→20:50)
[2017-12-07] MEDS: LISINOPRIL 20 MG TAB PO (08:07)
[2017-12-07] MEDS: ARIPIPRAZOLE 10 MG TAB PO (08:07)
[2017-12-07] MEDS: AMLODIPINE 10 MG TAB PO (08:08)
[2017-12-07] MEDS: clonAZEPAM 0.5 MG TAB PO ×2 (08:35→21:37)
[2017-12-07] MEDS: D5-NS + KCL 20 MEQ 1,000 ML IV (09:30)
[2017-12-07] MEDS: HYDROCODONE/APAP (5/325) TAB PO (11:36)
[2017-12-07] MEDS: KETOROLAC 30 MG INJ IV ×2 (13:13→18:14)
[2017-12-07 16:19] LABS: MAGNESIUM 1.5 mg/dl (1.7-2.5)
[2017-12-07] MEDS: hydrALAzine 20 MG INJ IV (18:51)
[2017-12-07] MEDS: AMITRIPTYLINE 25 MG TAB PO (20:50)
[2017-12-08] MEDS: KETOROLAC 30 MG INJ IV ×4 (00:49→18:22)
[2017-12-08] MEDS: ACETAMINOPHEN 1000MG/100ML IV 100 ML IVPB (01:10)
[2017-12-08 05:38] LABS: ADD MAN DIFF? NO
[2017-12-08 05:49] LABS: BASOPHILS % 0.4 % (0.0-2.0); EOSINOPHILS # 0.1 10^3/ul (0.0-0.5); EOSINOPHILS % 1.6 % (0.0-7.0); HEMATOCRIT 28.2 % (37.0-47.0); HEMOGLOBIN 9.6 g/dl (12.0-16.0); LYMPHOCYTES # 1.2 10^3/ul (0.8-2.9); LYMPHOCYTES % 24.3 % (15.0-51.0); MEAN CORPUSCULAR HEMOGLOBIN 32.1 pg (29.0-33.0); MEAN CORPUSCULAR VOLUME 94.3 fl (82.0-101.0); MEAN PLATELET VOLUME 10.2 fl (7.4-10.4); MONOCYTE # 0.7 10^3/ul (0.3-0.9); MONOCYTES % 15.1 % (0.0-11.0); NEUTROPHIL # 2.9 10^3/ul (1.6-7.5); NEUTROPHILS % 58.4 % (39.0-77.0); PLATELET COUNT 156 10^3/UL (140-415); RED BLOOD COUNT 2.99 10^6/ul (4.20-5.40); RED CELL DISTRIBUTION WIDTH 12.6 % (11.5-14.5)
[2017-12-08 05:49] LABS: WHITE BLOOD COUNT 4.9 10^3/ul (4.8-10.8)
[2017-12-08] MEDS: PANTOPRAZOLE 40 MG INJ IV (06:00)
[2017-12-08] MEDS: D5W-0.45 NACL + KCL 20 MEQ 1,000 ML IV ×3 (06:00→20:13)
[2017-12-08] MEDS: metroNIDAZOLE 500 MG/NS (PMX) 100 ML IVPB ×3 (06:01→20:15)
[2017-12-08] MEDS: ONDANSETRON 4 MG INJ IV (06:15)
[2017-12-08] MEDS: hydrALAzine 20 MG INJ IV (06:15)
[2017-12-08 06:19] LABS: ANION GAP 8 (8-16); BLOOD UREA NITROGEN 5 mg/dl (7-20); CALCIUM 8.2 mg/dl (8.4-10.2); CARBON DIOXIDE 27 mmol/L (21-31); CHLORIDE 101 mmol/L (97-110); CREATININE 0.71 mg/dl (0.44-1.00); GLUCOSE 87 mg/dl (70-220); POTASSIUM 4.3 mmol/L (3.5-5.1); SODIUM 132 mmol/L (135-144)
[2017-12-08] MEDS: carBAMAZepine (XR) 100 MG TABSR PO ×2 (09:01→20:15)
[2017-12-08] MEDS: ARIPIPRAZOLE 10 MG TAB PO (09:01)
[2017-12-08] MEDS: HYDROCODONE/APAP (5/325) TAB PO ×2 (09:02→19:27)
[2017-12-08] MEDS: LISINOPRIL 20 MG TAB PO (09:02)
[2017-12-08] MEDS: CEFTRIAXONE 1 GM/50 ML (PMX) 50 ML IVPB (09:02)
[2017-12-08] MEDS: AMLODIPINE 10 MG TAB PO (09:02)
[2017-12-08] MEDS ORDERED: morphine LIQ (10 MG/5 ML) CUP PO (12:51)
[2017-12-08] MEDS: AMITRIPTYLINE 25 MG TAB PO (20:14)
[2017-12-09] MEDS: KETOROLAC 30 MG INJ IV ×3 (01:28→13:04)
[2017-12-09] MEDS: hydrALAzine 20 MG INJ IV (01:44)
[2017-12-09] MEDS: ONDANSETRON 4 MG INJ IV (03:20)
[2017-12-09] MEDS: ACETAMINOPHEN 325 MG TAB PO (03:21)
[2017-12-09 05:15] LABS: ADD MAN DIFF? NO
[2017-12-09 05:18] LABS: BASOPHILS % 0.4 % (0.0-2.0); EOSINOPHILS # 0.3 10^3/ul (0.0-0.5); EOSINOPHILS % 5.2 % (0.0-7.0); HEMATOCRIT 28.8 % (37.0-47.0); HEMOGLOBIN 9.8 g/dl (12.0-16.0); LYMPHOCYTES # 1.3 10^3/ul (0.8-2.9); LYMPHOCYTES % 22.8 % (15.0-51.0); MEAN CORPUSCULAR HEMOGLOBIN 31.5 pg (29.0-33.0); MEAN CORPUSCULAR VOLUME 92.6 fl (82.0-101.0); MONOCYTE # 0.7 10^3/ul (0.3-0.9); MONOCYTES % 12.6 % (0.0-11.0); NEUTROPHIL # 3.3 10^3/ul (1.6-7.5); NEUTROPHILS % 58.8 % (39.0-77.0); PLATELET COUNT 178 10^3/UL (140-415); RED BLOOD COUNT 3.11 10^6/ul (4.20-5.40); RED CELL DISTRIBUTION WIDTH 12.4 % (11.5-14.5)
[2017-12-09 05:18] LABS: WHITE BLOOD COUNT 5.6 10^3/ul (4.8-10.8)
[2017-12-09 05:39] LABS: ALANINE AMINOTRANSFERASE 46 IU/L (13-69); ALBUMIN 3.3 g/dl (3.3-4.9); ALBUMIN/GLOBULIN RATIO 1.06; ALKALINE PHOSPHATASE 67 IU/L (42-121); ANION GAP 12 (8-16); ASPARTATE AMINO TRANSFERASE 40 IU/L (15-46); BILIRUBIN,INDIRECT 0.3 mg/dl (0-1.1); BILIRUBIN,TOTAL 0.3 mg/dl (0.2-1.3); BLOOD UREA NITROGEN 4 mg/dl (7-20); CALCIUM 8.5 mg/dl (8.4-10.2); CARBON DIOXIDE 27 mmol/L (21-31); CHLORIDE 97 mmol/L (97-110); CREATININE 0.69 mg/dl (0.44-1.00); GLUCOSE 96 mg/dl (70-220); POTASSIUM 4.2 mmol/L (3.5-5.1); SODIUM 132 mmol/L (135-144); TOTAL PROTEIN 6.4 g/dl (6.1-8.1)
[2017-12-09] MEDS: metroNIDAZOLE 500 MG/NS (PMX) 100 ML IVPB (06:27)
[2017-12-09] MEDS: PANTOPRAZOLE 40 MG INJ IV (06:28)
[2017-12-09] MEDS: CEFTRIAXONE 1 GM/50 ML (PMX) 50 ML IVPB (08:54)
[2017-12-09] MEDS: ARIPIPRAZOLE 10 MG TAB PO (08:54)
[2017-12-09] MEDS: AMLODIPINE 10 MG TAB PO (08:55)
[2017-12-09] MEDS: carBAMAZepine (XR) 100 MG TABSR PO (08:55)
[2017-12-09] MEDS: LISINOPRIL 20 MG TAB PO (08:55)
[2017-12-09] MEDS: clonAZEPAM 0.5 MG TAB PO (08:57)
[2017-12-09] MEDS: D5W-0.45 NACL + KCL 20 MEQ 1,000 ML IV (10:13)
[2017-12-09] MEDS: HYDROCODONE/APAP (5/325) TAB PO (18:06)
== END 2017-12-09 19:00 | disposition home or self-care (01) | DRG 412 ==
LOC: E/R 17:55 → MS1 12-02 14:12
PROC: 0FB Hepatobiliary System and Pancreas, Excision (ICD-10-PCS; principal; 2017-12-02 13:30)
PROC: 0FT40ZZ Resection of Gallbladder, Open Approach (ICD-10-PCS; 2017-12-02 13:45)
PROC: 0FC90ZZ Extirpation of Matter from Common Bile Duct, Open Approach (ICD-10-PCS; 2017-12-02 13:45)
DX: K80.71 Calculus of gallbladder and bile duct without cholecystitis with obstruction (principal); E87.1 Hypo-osmolality and hyponatremia; K29.70 Gastritis, unspecified, without bleeding; E86.1 Hypovolemia; E66.9 Obesity, unspecified; Z68.36 Body mass index [BMI] 36.0-36.9, adult; I10 Essential (primary) hypertension; F31.9 Bipolar disorder, unspecified; M81.0 Age-related osteoporosis without current pathological fracture
CPT/HCPCS: 36415; 71045; 74018; 74181; 76705; 78226; 80048; 80053; 81001; 81003; 82378; 83690; 83735; 83935; 84100; 84300; 84484; 85025; 85610; 85730; 86301; 86850; 86900; 86901; 87086; 88304; 88305; 88312; 93005; 96374; 96375; 99285-25

== ENCOUNTER 2018-04-10 17:07 | Emergency (ER) | payer OTHER ==
[2018-04-10] MEDS: LIDOCAINE 1% (MDV) 20 ML INJ SC (19:56)
== END 2018-04-10 20:53 | disposition home or self-care (01) ==
LOC: FTE 17:07
DX: S90.822A Blister (nonthermal), left foot, initial encounter (principal); I10 Essential (primary) hypertension; X58.XXXA Exposure to other specified factors, initial encounter; Y92.9 Unspecified place or not applicable
CPT/HCPCS: 99283; Z7502

== ENCOUNTER 2018-08-29 14:29 | Emergency (ER) | payer OTHER ==
[2018-08-29] MEDS: traMADol 50 MG TAB PO (17:12)
[2018-08-29] MEDS: IBUPROFEN 600 MG TAB PO (17:12)
[2018-08-29] MEDS: LIDOCAINE 1% (MPF) 5 ML VIAL INFIL (17:13)
== END 2018-08-29 18:10 | disposition home or self-care (01) ==
LOC: FTE 14:29
DX: B07.0 Plantar wart (principal); I10 Essential (primary) hypertension
CPT/HCPCS: 99281; Z7502

== ENCOUNTER 2018-10-23 11:02 | Emergency (ER) | payer OTHER ==
[2018-10-23] MEDS: CYCLOBENZAPRINE 10 MG TAB PO (12:59)
[2018-10-23] MEDS: NAPROXEN 500 MG TAB PO (13:07)
== END 2018-10-23 14:19 | disposition home or self-care (01) ==
LOC: FTE 11:02
DX: M62.830 Muscle spasm of back (principal); I10 Essential (primary) hypertension; F17.210 Nicotine dependence, cigarettes, uncomplicated
CPT/HCPCS: 72072; 99283-25

== ENCOUNTER 2018-12-09 10:41 | Emergency (ER) | payer BC, OTHER | END 2018-12-09 11:34 | disposition home or self-care (01) | LOC: FTE 10:41 | DX: Z76.0 Encounter for issue of repeat prescription (principal); I10 Essential (primary) hypertension; Z87.891 Personal history of nicotine dependence | CPT/HCPCS: 99281; Z7502 ==

== ENCOUNTER 2018-12-23 15:30 | Emergency (ER) | payer BC | END 2018-12-23 16:47 | disposition home or self-care (01) | LOC: FTE 15:30 | DX: F31.60 Bipolar disorder, current episode mixed, unspecified (principal); I10 Essential (primary) hypertension; F17.210 Nicotine dependence, cigarettes, uncomplicated | CPT/HCPCS: 99281; Z7502 ==

== ENCOUNTER 2019-01-05 13:00 | Emergency (ER) | payer BC | END 2019-01-05 13:58 | disposition home or self-care (01) | LOC: E/R 13:00 | DX: L84 Corns and callosities (principal); I10 Essential (primary) hypertension; S60.561A Insect bite (nonvenomous) of right hand, initial encounter; W57.XXXA Bitten or stung by nonvenomous insect and other nonvenomous arthropods, initial encounter; Y92.9 Unspecified place or not applicable; Z87.891 Personal history of nicotine dependence | CPT/HCPCS: 99282 ==